=== PATIENT | male | born 1970 | race Caucasian/White ===

== ENCOUNTER 2020-11-20 11:01 | Emergency (ER) | payer SELFPAY ==
[2020-11-20 11:16] VITALS: BP 202/97; PULSE 53; RESP 18; TEMP 36.8; O2SAT 97; BMI 23.0
--- NOTE | 2020-11-20 11:27 | W.ED.NAVMDI ---
HPI - Nausea/Vomiting/Diarrhea General: Chief complaint: Nausea/Vomiting/Diarrhea Stated complaint: n/v/d Time Seen by Provider: 11/20/20 11:19 History of Present Illness: HPI Narrative: The patient is a 50-year-old male who comes to the ER complaining of nausea, vomiting, diarrhea for the past day and a half. He says he is not able to keep down anything and in the past day he is eating maybe 6 chicken nuggets and some fluids however he continues to vomit that up as well. Says he feels dry in the mouth and lightheaded when he stands up. Only past medical history is hypertension. MD elicited complaint: nausea, vomiting and diarrhea Onset (ago): hour(s) (36) Description of vomiting: watery Description of diarrhea: lose Associated nausea: Yes Pain consistency: intermittent Severity: moderate Quality: cramping Exacerbating factors: eating Relieving factors: none Associated symtoms: Reports nausea; Denies anxiety, change in vision, chest pain, dizziness, fatigue, fevers/chills, headache(s) or palpitations Review of Systems General: Reports: 10 or more systems reviewed and unremarkable except in HPI and below Const: Denies: fatigue Eyes: Denies: change in vision, blurry vision or eye redness ENMT: Denies: throat pain, swelling of lips/tongue, ear or mastoid pain or nasal congestion Card: Denies: chest pain, palpitations, irregular heart rhythm, edema, dyspnea on exertion or orthopnea Resp: Denies: dyspnea, productive cough or non-productive cough GI: Reports: abdominal pain, nausea, vomiting and diarrhea : Denies: flank pain, urinary frequency or urinary urgency Musc: Denies: neck pain, back pain, extremity pain, joint pain, joint redness, limited range of motion or muscle weakness Skin/Breast: Denies: rash, pruritus, erythema, skin pain or skin tenderness Neuro: Denies: headache(s), numbness in extremities, weakness in extremities, sensory changes, difficulty walking, dizziness, confusion or Slurred speech present Psych: Denies: anxiety or depression Endo: Denies: polyuria All/Imm: Denies: urticaria, throat swelling or tongue swelling PFSH ED PFSH: Social History (Updated 11/20/20 @ 11:21 by Smith Shipley RN) Smoking and tobacco status: current every day smoker cigarettes Packs smoked per day: 1 Alcohol intake: current Alcohol intake frequency: 3 or more drinks per day Alcohol type: beer Substance/Drug Use: current Substance/Drug use type: Marijuana Physical Exam Const: COMMON NORMALS: no acute distress, average body habitus, patient oriented x3, no limitations, healthy appearing, alert and well nourished GENERAL APPEARANCE: cooperative, comfortable, well kempt and well developed ORIENTATION/CONSCIOUSNESS: Yes awake, Yes oriented to person, Yes oriented to place and Yes oriented to time HENMT: COMMON NORMALS: normocephalic, external ears normal and Normal external nose present HEAD & SCALP: normal to inspection and normocephalic NOSE: Normal external nose present EXTERNAL EAR: Yes external ears normal MOUTH: Normal oral and palatal mucosa present THROAT: posterior oropharynx normal Eye: COMMON NORMALS: Equal, round and reactive pupils present and EOMs intact bilaterally GENERAL EYE: appearance normal, both eyes and all related structures PUPIL: Yes Equal, round and reactive pupils present Neck/C-Spine: COMMON NORMALS: full ROM, no lymphadenopathy, no meningeal signs and no JVD GENERAL: Yes normal visual inspection Lymph: LYMPHATIC: no lymphadenopathy noted Chest: COMMONS NORMALS: normal inspection of the chest and normal palpation of entire chest wall Resp: COMMON NORMALS: normal respiratory effort, No retractions, No use of accessory muscles, clear to auscultation bilaterally and percussion normal EFFORT & INSPECTION: Yes able to speak in complete sentences AUSCULTATION: clear to auscultation bilaterally PERCUSSION: percussion normal Cardio: COMMON NORMALS: no JVD, regular rate, regular rhythm, S1 normal heart sound present, S2 normal heart sound present and Peripheral pulses 2+ throughout RATE: regular rate RHYTHM: regular rhythm HEART SOUNDS: S1 normal heart sound present and S2 normal heart sound present PERIPHERAL PULSES: Peripheral pulses 2+ throughout GI: COMMON NORMALS: Normal to inspection, nondistended, normoactive bowel sounds present, Soft to palpation, non-tender and no masses INSPECTION: Yes normal to inspection PALPATION: Yes Soft to palpation : COMMON NORMALS: Yes no CVA tenderness BLADDER/KIDNEY EXAM: Yes no CVA tenderness Back/Pelvis: COMMON NORMALS: no CVA tenderness, thoracic and lumbar spine normal to inspection, no thoracic nor lumbar tenderness and thoraco-lumbar ROM normal Extremity: COMMON NORMALS: normal to inspection, full ROM, capillary refill normal, no joint enlargement and no pedal edema GENERAL: Yes normal exam except as noted Neuro: COMMON NORMALS: patient oriented x3, CN's II-XII intact bilaterally, moves all extremities, no focal motor deficits, no sensory deficits noted and gait normal SENSORIUM/ORIENTATION: Yes alert, Yes oriented to person, Yes oriented to place and Yes oriented to time MENINGEAL SIGNS: Yes no meningeal signs Psych: COMMON NORMALS: mental status grossly normal, Normal thought process present, cooperative, normal affect and speech normal APPEARANCE: Yes well kempt ATTITUDE: Yes calm SPEECH: Yes normal speech THOUGHT PROCESS: Normal thought process present Skin: COMMON NORMALS: no rashes or lesions noted GENERAL SKIN EXAM: no rashes or lesions noted Course Vital Signs: Vital signs: Vital Signs Temperature 98.3 F 11/20/20 11:16 Pulse Rate 61 11/20/20 15:18 Respiratory Rate 20 H 11/20/20 14:11 Blood Pressure 153/77 11/20/20 15:18 Pulse Oximetry 97 11/20/20 15:18 MDM - Nausea/Vomiting/Diarrhea MDM Narrative: Medical decision making narrative: Patient came in with gastroenteritis symptoms. CT is positive for enteritis as well. He was given Zofran and Phenergan with improvement of his symptoms as well as IV fluids. He has been hypertensive while he is here but his most recent blood pressure is 153/77. Recommended he check his blood pressure twice daily and bring it to his primary care physician next week. ER with worsening symptoms at any time. Lab Data: Labs: Lab Results 11/20/20 11/20/20 Range/Units 11:20 11:20 WBC 16.2 H (4.0-10.0) 10^3/ uL RBC 5.27 (4.1-5.3) 10^6/u L Hgb 19.2 H (11.7-16.6) g/dL Hct 53.2 H (42.0-52.0) % MCV 100.9 H (80-94) fL MCH 36.4 H (28.0-34.0) pg MCHC 36.1 H (30.0-36.0) g/dL RDW 12.2 (12.1-15.1) % Plt Count 241 (130-400) 10^3/c mm MPV 9.3 (7.4-10.4) fL Neut % (Auto) 81.0 % Lymph % (Auto) 12.7 % [place] % (Auto) 5.5 % Eos % (Auto) 0.1 % Baso % (Auto) 0.2 % Neut # (Auto) 13.13 H (1.8-7.7) 10^3/u L Lymph # (Auto) 2.1 (0.8-4.8) 10^3/u L [place] # (Auto) 0.9 (0.2-0.9) 10^3/u L Eos # (Auto) 0.0 (0.0-0.8) 10^3/u L Baso # (Auto) 0.0 (0.0-0.1) 10^3/u L Nucleated RBC % (a uto) 0 % Nucleated RBCs # 0.0 /100WBC Sodium 132 L (136-145) mmol/L Potassium 4.0 (3.5-5.1) mmol/L Chloride 91 L (98-107) mmol/L Carbon Dioxide 27 (22-29) mmol/L Anion Gap 18.0 (5-19) BUN 17 (6-20) mg/dL Creatinine 1.0 (0.7-1.2) mg/dL GFR Calculation 79.1 L (90-130) mL/min Glucose 110 (65-115) mg/dL Calculated Osmolal ity 276 L (285-295) mOsm/k g Calcium 9.4 (8.5-10.5) mg/dL Total Bilirubin 0.9 (0.15-1.2) mg/dL AST 19 (0-40) U/L ALT 26 (0-41) U/L Alkaline Phosphata se 85 (40-130) IU/L Total Protein 7.9 (6.6-8.7) g/dL Albumin 4.9 (3.5-5.2) g/dL Globulin 3.0 (1.3-4.6) g/dL Lipase 12 L (13-60) U/L Discharge Plan Discharge Patient Disposition: Home Clinical Impression: Gastroenteritis Condition: Stable Prescriptions: New ondansetron 4 mg tablet,disintegrating 4 mg PO Q8H 4 Days Qty: 12 RF: 0 Discharge Orders: Discharge ED (Routine); Ordered 11/20/20 Ordered By: Angelo Gutierrez Discharge Diet: Advance as tolerated Discharge Activity: Resume usual activity Patient Instructions: Gastroenteritis (ED), Opioid Safety Activity Restrictions/Additional Instructions: You are suffering from gastroenteritis. Please take the Zofran to help with nausea and drink fluids as you can and eat easy to digest foods. Return to the ER with inabilities to tolerate oral fluids or foods. Or any worsening symptoms you may return to the ER. Otherwise follow-up with your primary care physician in a couple days to monitor improvement of your symptoms. Take Zofran let it dissolve in your mouth and after 10 or 15 minutes start sipping water to see if it helps with your nausea. Your blood pressure has also been elevated while you are here. Please continue to check it twice a day at home when you are resting and bring these values to your primary care doctor next week. 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
[2020-11-20 11:30] VITALS: BP 189/110; PULSE 52; RESP 18; O2SAT 98
[2020-11-20] MEDS: ondansetron 2 mg/ML SDV 2 mL 4 MG IVP (11:32)
[2020-11-20] MEDS: sodium chloride 0.9% 1,000 ML 999 ML IV (11:32)
[2020-11-20 11:40] LABS: Basophils % 0.2 %; Eosinophils % 0.1 %; Hematocrit 53.2 % (42.0-52.0); Hemoglobin 19.2 g/dL (11.7-16.6); Lymphocytes # 2.1 10^3/uL (0.8-4.8); Lymphocytes % 12.7 %; Mean Corpuscular HGB Conc 36.1 g/dL (30.0-36.0); Mean Corpuscular Hemoglobin 36.4 pg (28.0-34.0); Mean Corpuscular Volume 100.9 fL (80-94); Mean Platelet Volume 9.3 fL (7.4-10.4); Monocytes # 0.9 10^3/uL (0.2-0.9); Monocytes % 5.5 %; Neutrophils # 13.13 10^3/uL (1.8-7.7); Nucleated Red Blood Cells % 0 %; Platelet Count 241 10^3/cmm (130-400); Red Blood Count 5.27 10^6/uL (4.1-5.3); Red Cell Distribution Width 12.2 % (12.1-15.1); White Blood Count 16.2 10^3/uL (4.0-10.0)
[2020-11-20 11:57] LABS: Alanine Aminotransferase 26 U/L (0-41); Albumin Level 4.9 g/dL (3.5-5.2); Alkaline Phosphatase 85 IU/L (40-130); Aspartate Amino Transferase 19 U/L (0-40); Blood Urea Nitrogen 17 mg/dL (6-20); Calcium 9.4 mg/dL (8.5-10.5); Carbon Dioxide 27 mmol/L (22-29); Chloride 91 mmol/L (98-107); Creatinine Clr Calc Pharmacy 96.7555; Glomerular Filtration Rate 79.1 mL/min (90-130); Glucose 110 mg/dL (65-115); Lipase 12 U/L (13-60); Osmolality Calculated 276 mOsm/kg (285-295); Sodium 132 mmol/L (136-145); Total Bilirubin 0.9 mg/dL (0.15-1.2); Total Protein 7.9 g/dL (6.6-8.7)
--- NOTE | 2020-11-20 12:29 | CTR_ITS ---
PROCEDURE INFORMATION: Exam: CT Abdomen And Pelvis With Contrast Exam date and time: 11/20/2020 12:29 PM Age: 50 years old Clinical indication: Abdominal pain; Prior surgery; Surgery type: Gb; Additional info: Abdomincal pain TECHNIQUE: Imaging protocol: Computed tomography of the abdomen and pelvis with contrast. Axial, coronal and sagittal reformatted images were created and reviewed. Radiation optimization: All CT scans at this facility use at least one of these dose optimization techniques: automated exposure control; mA and/or kV adjustment per patient size (includes targeted exams where dose is matched to clinical indication); or iterative reconstruction. Contrast material: OMNI 300; Contrast volume: 95 ml; Contrast route: INTRAVENOUS (IV); COMPARISON: No relevant prior studies available. RADIATION DOSE METRICS: Total DLP (mGy-cm): 1164.6 FINDINGS: Liver: Unremarkable. Gallbladder and bile ducts: Status post cholecystectomy. No biliary ductal dilatation. Pancreas: Unremarkable. Spleen: Unremarkable. Adrenal glands: Normal. No mass. Kidneys and ureters: No mass. No radiodense calculi. No hydronephrosis. Stomach and bowel: Questionable mild small bowel wall thickening, most notably in the right lower quadrant distal ileal loops. Colonic diverticulosis without evidence of diverticulitis. No obstruction. No pneumatosis. Appendix: Normal. Intraperitoneal space: No free fluid. No organized fluid collection. No free air. Vasculature: Mild atherosclerotic disease. No aneurysm or dissection. Lymph nodes: No pathologically enlarged lymph nodes. Urinary bladder: Mild circumferential urinary bladder wall thickening, likely secondary to underdistention. Reproductive: Unremarkable. Bones/joints: No acute osseous abnormality. Osteopenia. Mild degenerative changes. Soft tissues: Unremarkable. CT/CT abdomen pelvis w con* [id number] IMPRESSION: 1. Questionable mild small bowel wall thickening, most notably in the right lower quadrant distal ileal loops. Query mild nonspecific enteritis. 2. Additional findings, as above. Radiation Dose CTDIVOL = (mGy): DLP = 1164.6 (mGy-cm)
[2020-11-20] MEDS: iohexol 300 mg/mL 100 mL Btl IV (12:53)
[2020-11-20] MEDS: ketorolac 30 mg/mL INJ 15 MG IVP (14:08)
[2020-11-20] MEDS: promethazine 25 mg/mL SDV 1 mL IM (14:10)
[2020-11-20 14:11] VITALS: BP 201/102; PULSE 57; RESP 20; O2SAT 99
[2020-11-20 15:18] VITALS: BP 153/77; PULSE 61; O2SAT 97
--- NOTE | 2020-11-24 12:00 | DCPLANNER ---
senior care manager had message to speak with patient about getting established with a primary care physician. senior care manager called phone number [phone], unable to speak with patient at this time and no voicemail box set up.
== END 2020-11-20 15:21 | disposition home or self-care (01) ==
PROVIDERS: Emergency Provider Family Medicine
DX: K52.9 Noninfective gastroenteritis and colitis, unspecified (principal); F17.210 Nicotine dependence, cigarettes, uncomplicated
CPT/HCPCS: 74177; 80053; 83690; 85025; 96361; 96372; 96374; 96375; 99284; J1885; J2405; J2550; J7030; Q9967